=== PATIENT | male | born 1945 | race Caucasian/White ===

== ENCOUNTER 2018-10-29 09:45 | Observation (INO) | payer BC, MEDICARE ==
[~2018-10-29] VITALS: Ht 175.3 cm; Wt 78.2 kg
[~2018-10-29 09:45] MED LIST: ATOR80TA PO; AZIT500T PO; CEFU500T PO; FLUO10CA13 PO; LEVO88TA4 PO
--- NOTE | 2018-10-29 10:09 | NUR ---
BIB BY [facility] FOR DIZZINESS W/ EXERTION. ON SCENE SBP 60. NO LOC. REPORTS HX OF STENTS/REPORTS RECENT CHANGE TO HOME MEDS (PATIENT UNSURE OF WHICH) FSBS: 117 EMS ECG: RBB, HR 50 ON ARRIVAL: REPORTS DIZZINESS RESOLVED 48, 131/66 (REPORTS HIS NORMAL HR 50-55) PROVIDER AT BEDSIDE-TO DEFER ASA PATIENT TOOK HIS HOME [place] THIS AM
--- NOTE | 2018-10-29 10:14 | NUR ---
CXR AT BEDSIDE
[2018-10-29] MEDS ORDERED: SODIUM CHLORIDE FLUSH 10ML SYR IVF ONE (10:30)
[2018-10-29] MEDS ORDERED: PLEASE ENTER HEIGHT AND WEIGHT MC SCH (10:30)
[2018-10-29 10:43] LABS: ALANINE AMINOTRANSFERASE 67 U/L (12-78); ALBUMIN 3.5 g/dL (3.4-5.0); ANION GAP 6 mmol/L (5-15); CHLORIDE 112 mmol/L (98-107); CREATININE 1.78 mg/dL (0.7-1.3)
[2018-10-29 10:44] LABS: BASOPHILS # (AUTO) 0.03 x10^3/uL (0-0.1); BASOPHILS % (AUTO) 1 % (0-1); EOSINOPHILS # (AUTO) 0.19 x10^3/uL (0-0.4); EOSINOPHILS % (AUTO) 4 % (1-7); LYMPHOCYTES # (AUTO) 0.84 x10^3/uL (1-3.4); LYMPHOCYTES % (AUTO) 16 % (22-44); MD NO; MEAN CORPUSCULAR HEMOGLOBIN 32.6 pg (27.5-34.5); MEAN CORPUSCULAR HGB CONC 33.9 g/dL (33.2-36.2); MEAN CORPUSCULAR VOLUME 96.1 fL (81-97); MEAN PLATELET VOLUME 10.1 fL (7.4-10.4); MONOCYTES # (AUTO) 0.33 x10^3/uL (0.2-0.8); MONOCYTES % (AUTO) 6 % (2-9); NEUTROPHILS # (AUTO) 3.87 x10^3/uL (1.8-6.8); NEUTROPHILS % (AUTO) 74 % (42-75); PLATELET COUNT 167 x10^3/uL (130-400); RED BLOOD COUNT 4.58 x10^6/uL (4.38-5.82); RED CELL DISTRIBUTION WIDTH 13.1 % (9.4-14.8)
[2018-10-29 10:45] LABS: ALKALINE PHOSPHATASE 71 U/L (45-117); BILIRUBIN,TOTAL 1.2 mg/dL (0.2-1.0); TOTAL PROTEIN 7.2 g/dL (6.4-8.2)
--- NOTE | 2018-10-29 10:50 | NUR ---
WITH REASSESSMENT PATIENT REMAINS SYMPTOM FREE (NO DIZZINESS). HR REMAINS 45-50, 122/68 ON OPERATING MANAGER UPDATED ON POC
[2018-10-29] MEDS ORDERED: METO25TA91 PO (11:00)
[2018-10-29] MEDS ORDERED: TICA90TA PO (11:00)
[2018-10-29] MEDS ORDERED: ASPI-496 PO (11:00)
[2018-10-29] MEDS ORDERED: TELM20TA PO (11:00)
--- NOTE | 2018-10-29 12:03 | NUR ---
WITH REASSESSMENT PATIENT REMAINS SYMPTOM FREE (NO DIZZINESS). HR REMAINS 45-50 ON SPECIALTY COOK UPDATED ON POC (ADMIT) PROVIDED W/ SOLIDS/LIQUIDS AFTER CLARIFICATION WITH PROVIDER AMBULATED DOWN LYLE TO RESTROOM WITH NO DIFFICULTY
--- NOTE | 2018-10-29 12:24 | NUR ---
MED REC FINALIZED RECENT CHANGES: -DID NOT TAKE SYNTHROID BEFORE WORKING OUT THIS AM -TELMISARTAN UPPED FROM 20-40MG 09/26 CARDIAC DIET TRAY DELIVERED TO BEDSIDE VITALS UNCHANGED ON DIRECTOR OF DIRECT MARKETING
--- NOTE | 2018-10-29 13:50 | NUR ---
Clarified dispo w/ throughput RN/MD- working on admit
--- NOTE | 2018-10-29 13:52 | NUR ---
MOVED TO HOSPITAL BED REMAINS ASYMPTOMATIC, VITALS STABLE ON BAR GAUGER AND LUBRICATOR TENDER (54, 115/61) UPDATED ON POC (PENDING ADMIT)
--- NOTE | 2018-10-29 13:53 | NUR ---
REPORT TO GENIA RIVERS
--- NOTE | 2018-10-29 14:03 | NUR ---
BREAK RN: PT RESTING ON HOSP BED. NO ACUTE DISTRESS NOTED. PT VERBALIZED UNDERSTANDING REGARDING POC. FAMILY BEDSIDE. NO NEEDS REQUESTED AT THIS TIME.
--- NOTE | 2018-10-29 14:20 | NUR ---
Reminded throughput/md for need for admit order-provider to enter
--- NOTE | 2018-10-29 14:23 | NUR ---
BREAK RN: BEDSIDE REPORT TO SILVESTRE CARRIZALES.
[2018-10-29] MEDS ORDERED: ACETAMINOPHEN 325 MG TABLET PO PRN (17:30)
[2018-10-29] MEDS ORDERED: ONDANSETRON 2MG/ML, 2ML IVPush PRN (17:30)
[2018-10-29] MEDS ORDERED: ONDANSETRON ODT 4 MG PO PRN (17:30)
[2018-10-29 17:40] LABS: TROPONIN I < 0.015 ng/mL (0.000-0.045)
[2018-10-29] MEDS: SODIUM CHLORIDE 0.9% 1,000 ML IV SCH ×2 (17:58→17:59)
[2018-10-29 20:26] VITALS: BP 134/69
[2018-10-29] MEDS ORDERED: ATORVASTATIN 80 MG TABLET PO SCH (21:00)
[2018-10-29] MEDS: HEPARIN 5,000 UNITS/ML, 1ML SQ SCH (22:37)
[2018-10-29] MEDS: TICAGRELOR 90 MG TABLET PO SCH (22:37)
[2018-10-30 02:15] VITALS: BP 135/76
[2018-10-30 05:16] LABS: BASOPHILS # (AUTO) 0.03 x10^3/uL (0-0.1); BASOPHILS % (AUTO) 1 % (0-1); EOSINOPHILS # (AUTO) 0.22 x10^3/uL (0-0.4); EOSINOPHILS % (AUTO) 4 % (1-7); LYMPHOCYTES # (AUTO) 1.16 x10^3/uL (1-3.4); LYMPHOCYTES % (AUTO) 23 % (22-44); MD NO; MEAN CORPUSCULAR HEMOGLOBIN 32.1 pg (27.5-34.5); MEAN CORPUSCULAR HGB CONC 33.4 g/dL (33.2-36.2); MEAN CORPUSCULAR VOLUME 96.1 fL (81-97); MEAN PLATELET VOLUME 9.8 fL (7.4-10.4); MONOCYTES # (AUTO) 0.33 x10^3/uL (0.2-0.8); MONOCYTES % (AUTO) 7 % (2-9); NEUTROPHILS # (AUTO) 3.35 x10^3/uL (1.8-6.8); NEUTROPHILS % (AUTO) 66 % (42-75); PLATELET COUNT 164 x10^3/uL (130-400); RED BLOOD COUNT 4.46 x10^6/uL (4.38-5.82); RED CELL DISTRIBUTION WIDTH 13.1 % (9.4-14.8)
[2018-10-30 05:34] LABS: ANION GAP 6 mmol/L (5-15); CALCIUM 8.4 mg/dL (8.5-10.1); CHLORIDE 111 mmol/L (98-107)
[2018-10-30 05:39] LABS: TROPONIN I < 0.015 ng/mL (0.000-0.045)
[2018-10-30] MEDS ORDERED: LEVOTHYROXINE 88 MCG TABLET PO SCH (06:00)
[2018-10-30] MEDS: SODIUM CHLORIDE 0.9% 1,000 ML IV SCH (07:20)
[2018-10-30 07:21] VITALS: BP 148/77
[2018-10-30 08:24] VITALS: BP 156/76
[2018-10-30 08:25] VITALS: BP 145/82
[2018-10-30] MEDS: HEPARIN 5,000 UNITS/ML, 1ML SQ SCH (08:42)
[2018-10-30] MEDS: TICAGRELOR 90 MG TABLET PO SCH (08:42)
[2018-10-30] MEDS ORDERED: FLUOXETINE HCL 20 MG CAPSULE PO SCH (09:00)
[2018-10-30] MEDS ORDERED: ASPIRIN 81 MG TABLET EC PO SCH (09:00)
[2018-10-30] MEDS ORDERED: LOSARTAN 50MG TABLET PO SCH (09:00)
[2018-10-30 10:07] VITALS: BP 121/76
[2018-10-30 10:18] LABS: MICROSCOPIC NOT IND
[2018-10-30 10:28] LABS: CULTURE INDICATED? NO
[2018-10-30 10:32] VITALS: BP 136/74
[2018-10-30] MEDS ORDERED: METO25TA91 PO (10:48)
== END 2018-10-30 12:45 | disposition home or self-care (01) ==
LOC: ED 10:39 → INTOOBSV 14:26 → EDIP 14:26 → 5SO 16:44 → ED 16:44
PROVIDERS: ADMIT Internal Medicine; ATTEND Internal Medicine
DX: R55 Syncope and collapse (principal); R00.1 Bradycardia, unspecified; I25.10 Atherosclerotic heart disease of native coronary artery without angina pectoris; N17.0 Acute kidney failure with tubular necrosis; E03.9 Hypothyroidism, unspecified; F32.9 Major depressive disorder, single episode, unspecified; E78.5 Hyperlipidemia, unspecified; I50.32 Chronic diastolic (congestive) heart failure; Z95.5 Presence of coronary angioplasty implant and graft; Z79.82 Long term (current) use of aspirin; Z79.899 Other long term (current) drug therapy
CPT/HCPCS: 36415; 71045; 80048; 80053; 81003; 83735; 84100; 84443; 84484; 85025; 93005; 96372; 99285; G0378; J1644; J7030

== ENCOUNTER → 2019-12-06 | Outpatient (CLI) | payer MEDICARE ==
[~2019-12-06] MED LIST changes: +ASPI-496 PO; +METO25TA91 PO; +REGADENOSON 0.4 MG/5 ML SYRINGE ONE; +TELM20TA PO; +TICA90TA PO
== END | disposition home or self-care (01) ==
LOC: CFH 12:30
PROVIDERS: ATTEND Internal Medicine Cardiovascular Disease
DX: I45.10 Unspecified right bundle-branch block (principal); I10 Essential (primary) hypertension; R55 Syncope and collapse; R06.02 Shortness of breath
CPT/HCPCS: 78452; 93017; A9502; J2785